=== PATIENT | male | born 1955 | race Hispanic/Latino ===

== ENCOUNTER 2024-08-24 08:23 | Inpatient (IN) | payer MEDICARE ==
[~2024-08-24] VITALS: Ht 175.3 cm; Wt 93.0 kg
[~2024-08-24 08:23] MED LIST: BENICAR20 MG PO; CRESTOR40 MG PO; FLOMAX0.4 MG PO
[2024-08-24 09:16] LABS: BASOPHILS # (AUTO) 0.1 (0.0-0.1); EOSINOPHILS # (AUTO) 0.1 (0.0-0.4); EOSINOPHILS % 0.9 % (0.0-6.0); HEMATOCRIT 40.4 % (38.2-49.6); HEMOGLOBIN 14.2 g/dL (14.0-18.0); MEAN CORPUSCULAR HEMOGLOBIN 32.6 pg (28-32); MEAN CORPUSCULAR HGB CONC 35.1 g/dL (31-35); MEAN CORPUSCULAR VOLUME 92.7 fL (81-99); MONOCYTES # (AUTO) 0.5 (0.2-0.8); MONOCYTES % 7.1 % (4.4-11.3); NEUTROPHILS # (AUTO) 5.3 (2.1-6.9); NEUTROPHILS % 76.9 % (38.7-80.0); PLATELET COUNT 177 x10e3/uL (140-360); RED BLOOD COUNT 4.36 x10e6/uL (4.3-5.7); RED CELL DISTRIBUTION WIDTH 13.4 % (11.7-14.4); WHITE BLOOD COUNT 6.93 x10e3/uL (4.8-10.8)
[2024-08-24 09:48] LABS: ALBUMIN 4.3 g/dL (3.5-5.0); ANION GAP 21.7 mmol/L (8-16); BILIRUBIN,TOTAL 0.9 mg/dL (0.2-1.2); CALCIUM 9.3 mg/dL (8.4-10.2); CREATININE, SERUM 0.81 mg/dL (0.72-1.25); POTASSIUM 3.7 mmol/L (3.5-5.1); TOTAL PROTEIN 8.8 g/dL (6.5-8.1)
[2024-08-24] MEDS: SODIUM CHLORIDE 0.9% 1000ML 1,000 ML ONE (11:37)
[2024-08-24] MEDS: PIPERACILLIN/TAZOBACTAM 3.375 GM VIAL ONE (11:37)
[2024-08-24] MEDS: CLINDAMYCIN 600MG / 50ML 50 ML IV ONE (11:38)
[2024-08-24] MEDS: GENTAMICIN 80MG/NS 100 ML 200 ML IV ONE (11:38)
[2024-08-24] MEDS: LABETALOL HCL 20 ML ONE (11:39)
[2024-08-24] MEDS ORDERED: LIDOCAINE HCL 2% LOCAL INJ 5 ML SDV VIAL INJ ONE (11:49)
[2024-08-24] MEDS ORDERED: FENTANYL CITRATE/PF 100MCG/2 ML INJ ONE (11:49)
[2024-08-24] MEDS ORDERED: SEVOFLURANE INHAL SOLN 250 ML PEN BTL ONE (11:50)
[2024-08-24] MEDS ORDERED: ACETAMINOPHEN 1000 MG/100 ML 0 ML IV ONE (11:50)
[2024-08-24] MEDS ORDERED: ROCURONIUM BROMIDE 0 ML IV ONE (11:50)
[2024-08-24] MEDS ORDERED: PROPOFOL IV EMULSION 10 MG/ML 20 ML VIAL ONE (11:50)
[2024-08-24] MEDS ORDERED: ACETAMINOPHEN 1000 MG/100 ML IV PRN (13:45)
[2024-08-24] MEDS ORDERED: ACETAMINOPHEN/CODEINE 300MG - 30MG TAB PO PRN (13:45)
[2024-08-24] MEDS ORDERED: ONDANSETRON HCL INJ 2MG/ML 2ML 2 MG/ML VIAL IV PRN (13:45)
[2024-08-24] MEDS ORDERED: DIPHENHYDRAMINE HCL 25 MG CAP PO PRN (13:45)
[2024-08-24 14:29] VITALS: PULSE 90; RESP 18; O2SAT 96
[2024-08-24 15:13] VITALS: BP 162/73; PULSE 92; RESP 20; TEMP 98.3; O2SAT 98
[2024-08-24 16:00] VITALS: BP 154/87; PULSE 91; RESP 19; TEMP 98.9; O2SAT 98
[2024-08-24] MEDS ORDERED: OLMESARTAN 20 MG TAB PO SCH (16:30)
[2024-08-24] MEDS: CARVEDILOL 3.125 MG TAB PO SCH (17:21)
[2024-08-24] MEDS: SODIUM CHLORIDE 0.9% 1000ML 1,000 ML IV SCH (17:22)
[2024-08-24 19:31] VITALS: PULSE 80; PULSE 90; RESP 18; O2SAT 96; O2SAT 98
[2024-08-24 20:00] VITALS: BP 178/89; PULSE 82; RESP 17; TEMP 98.9; O2SAT 99
[2024-08-24] MEDS: OLMESARTAN 20 MG TAB PO SCH (20:32)
[2024-08-25] VITALS (11 sets, daily range): BP systolic 134–191; BP diastolic 82–92; PULSE 74–95; RESP 17–20; TEMP 97.2–99.5; O2SAT 95–99
[2024-08-25] MEDS: HYDRALAZINE HCL 20 MG/ML VIAL IV PRN (04:20)
[2024-08-25 05:45] LABS: BASOPHILS % 0.5 % (0.0-1.0); EOSINOPHILS # (AUTO) 0.1 (0.0-0.4); HEMATOCRIT 40.2 % (38.2-49.6); HEMOGLOBIN 13.8 g/dL (14.0-18.0); LYMPHOCYTES # (AUTO) 1.1 (1.0-3.2); LYMPHOCYTES % 19.2 % (18.0-39.1); MEAN CORPUSCULAR HEMOGLOBIN 32.5 pg (28-32); MEAN CORPUSCULAR HGB CONC 34.3 g/dL (31-35); MEAN CORPUSCULAR VOLUME 94.8 fL (81-99); MONOCYTES # (AUTO) 0.6 (0.2-0.8); MONOCYTES % 11.3 % (4.4-11.3); NEUTROPHILS # (AUTO) 3.7 (2.1-6.9); NEUTROPHILS % 66.8 % (38.7-80.0); PLATELET COUNT 182 x10e3/uL (140-360); RED BLOOD COUNT 4.24 x10e6/uL (4.3-5.7); RED CELL DISTRIBUTION WIDTH 13.5 % (11.7-14.4); WHITE BLOOD COUNT 5.58 x10e3/uL (4.8-10.8)
[2024-08-25 06:12] LABS: ANION GAP 17.1 mmol/L (8-16); CALCIUM 8.9 mg/dL (8.4-10.2); CREATININE, SERUM 0.74 mg/dL (0.72-1.25); POTASSIUM 3.1 mmol/L (3.5-5.1)
[2024-08-25] MEDS: HYDRALAZINE HCL 20 MG/ML VIAL ONE (09:06)
[2024-08-25] MEDS: OLMESARTAN 20 MG TAB PO SCH (09:07)
[2024-08-25] MEDS: NIFEDIPINE CR 30 MG TAB PO ONE (09:08)
[2024-08-25] MEDS: TAMSULOSIN HCL 0.4 MG CAP PO SCH (16:51)
[2024-08-26] VITALS (7 sets, daily range): BP systolic 103–140; BP diastolic 67–90; PULSE 71–102; RESP 17–22; TEMP 98.1–98.5; O2SAT 95–98
[2024-08-26] MEDS: NIFEDIPINE CR 30 MG TAB PO SCH (05:36)
[2024-08-26 05:39] LABS: BASOPHILS % 0.7 % (0.0-1.0); EOSINOPHILS # (AUTO) 0.2 (0.0-0.4); EOSINOPHILS % 3.5 % (0.0-6.0); HEMATOCRIT 38.7 % (38.2-49.6); HEMOGLOBIN 13.4 g/dL (14.0-18.0); LYMPHOCYTES # (AUTO) 1.6 (1.0-3.2); LYMPHOCYTES % 28.8 % (18.0-39.1); MEAN CORPUSCULAR HEMOGLOBIN 32.6 pg (28-32); MEAN CORPUSCULAR HGB CONC 34.6 g/dL (31-35); MEAN CORPUSCULAR VOLUME 94.2 fL (81-99); MONOCYTES # (AUTO) 0.7 (0.2-0.8); MONOCYTES % 13.3 % (4.4-11.3); NEUTROPHILS # (AUTO) 2.9 (2.1-6.9); NEUTROPHILS % 53.3 % (38.7-80.0); PLATELET COUNT 183 x10e3/uL (140-360); RED BLOOD COUNT 4.11 x10e6/uL (4.3-5.7); RED CELL DISTRIBUTION WIDTH 13.4 % (11.7-14.4); WHITE BLOOD COUNT 5.49 x10e3/uL (4.8-10.8)
[2024-08-26 06:05] LABS: ANION GAP 14.8 mmol/L (8-16); CALCIUM 8.8 mg/dL (8.4-10.2); CREATININE, SERUM 0.75 mg/dL (0.72-1.25)
[2024-08-26 06:12] LABS: POTASSIUM 2.8 mmol/L (3.5-5.1)
[2024-08-26] MEDS: POTASSIUM CHLORIDE 20MEQ/100ML 100 ML IV ONE (08:18)
[2024-08-26] MEDS: POTASSIUM CHLORIDE 20 MEQ TAB CR PO ONE (08:19)
[2024-08-26] MEDS ORDERED: ROCURONIUM BROMIDE 1 ML IV ONE ×2 (18:02→19:40)
[2024-08-26] MEDS ORDERED: LIDOCAINE HCL 2% LOCAL INJ 5 ML SDV VIAL INJ ONE (18:02)
[2024-08-26] MEDS ORDERED: FENTANYL CITRATE/PF 100MCG/2 ML INJ ONE ×2 (18:02→21:03)
[2024-08-26] MEDS ORDERED: PROPOFOL IV EMULSION 10 MG/ML 20 ML VIAL ONE (18:03)
[2024-08-26] MEDS ORDERED: EPHEDRINE SULFATE INJ 50 MG/ML VIAL ONE (18:35)
[2024-08-26] MEDS ORDERED: Vancomycin IV 1 GM VIAL ONE (18:50)
[2024-08-26] MEDS ORDERED: DEXAMETHASONE SOD PHOS INJ 4 MG/ML SDV ONE (18:58)
[2024-08-26] MEDS ORDERED: GENTAMICIN 80MG/NS 100 ML 200 ML IV ONE (19:01)
[2024-08-26] MEDS ORDERED: PIPERACILLIN/TAZOBACTAM 3.375 GM VIAL ONE (19:02)
[2024-08-26] MEDS ORDERED: CLINDAMYCIN 600MG / 50ML 50 ML IV ONE ×2 (19:02)
[2024-08-26] MEDS ORDERED: SODIUM CHLORIDE 0.9% 100 ML ONE (19:03)
[2024-08-26] MEDS ORDERED: ACETAMINOPHEN 1000 MG/100 ML 100 ML IV ONE (19:28)
[2024-08-26] MEDS ORDERED: SUGAMMADEX SODIUM 200 MG/2 ML VIAL IV ONE (20:57)
[2024-08-26] MEDS ORDERED: ACETAMINOPHEN/CODEINE 300MG - 30MG TAB PO PRN (21:15)
[2024-08-26] MEDS ORDERED: ONDANSETRON HCL INJ 2MG/ML 2ML 2 MG/ML VIAL IV PRN (21:15)
[2024-08-26] MEDS ORDERED: ACETAMINOPHEN 1000 MG/100 ML IV PRN (21:15)
[2024-08-26] MEDS ORDERED: PHENAZOPYRIDINE HCL 100 MG TAB PO PRN (21:15)
[2024-08-26] MEDS: SODIUM CHLORIDE 0.9% 1000ML 1,000 ML IV SCH (21:15)
[2024-08-26] MEDS ORDERED: NALOXONE HCL INJ 0.4 MG/ML AMP IV PRN (21:15)
[2024-08-26] MEDS ORDERED: MORPHINE SULFATE 1 MG/ML 30ML PCA IV PRN (21:15)
[2024-08-26] MEDS ORDERED: DIPHENHYDRAMINE HCL INJ 50 MG/ML VIAL IM PRN (21:15)
[2024-08-26 21:27] LABS: BASOPHILS % 0.4 % (0.0-1.0); EOSINOPHILS # (AUTO) 0.1 (0.0-0.4); EOSINOPHILS % 1.2 % (0.0-6.0); HEMATOCRIT 36.5 % (38.2-49.6); HEMOGLOBIN 12.4 g/dL (14.0-18.0); LYMPHOCYTES # (AUTO) 1.1 (1.0-3.2); LYMPHOCYTES % 13.7 % (18.0-39.1); MEAN CORPUSCULAR HEMOGLOBIN 32.6 pg (28-32); MEAN CORPUSCULAR VOLUME 96.1 fL (81-99); MONOCYTES # (AUTO) 0.4 (0.2-0.8); MONOCYTES % 4.4 % (4.4-11.3); NEUTROPHILS # (AUTO) 6.4 (2.1-6.9); NEUTROPHILS % 79.9 % (38.7-80.0); PLATELET COUNT 164 x10e3/uL (140-360); RED CELL DISTRIBUTION WIDTH 13.5 % (11.7-14.4); WHITE BLOOD COUNT 8.04 x10e3/uL (4.8-10.8)
[2024-08-26] MEDS: MORPHINE SULFATE 1 MG/ML 30ML PCA ONE (21:30)
[2024-08-26 21:47] LABS: ANION GAP 14.7 mmol/L (8-16); CALCIUM 8.2 mg/dL (8.4-10.2); CREATININE, SERUM 0.79 mg/dL (0.72-1.25)
[2024-08-26 22:28] LABS: POTASSIUM 3.7 mmol/L (3.5-5.1)
[2024-08-27] VITALS (8 sets, daily range): BP systolic 106–159; BP diastolic 68–86; PULSE 68–84; RESP 18–20; TEMP 97.6–98; O2SAT 97–100
[2024-08-27 05:04] LABS: BASOPHILS % 0.2 % (0.0-1.0); EOSINOPHILS # (AUTO) 0.2 (0.0-0.4); EOSINOPHILS % 2.2 % (0.0-6.0); HEMATOCRIT 34.8 % (38.2-49.6); HEMOGLOBIN 11.6 g/dL (14.0-18.0); LYMPHOCYTES # (AUTO) 0.8 (1.0-3.2); MEAN CORPUSCULAR HEMOGLOBIN 32.5 pg (28-32); MEAN CORPUSCULAR HGB CONC 33.3 g/dL (31-35); MEAN CORPUSCULAR VOLUME 97.5 fL (81-99); MONOCYTES # (AUTO) 0.8 (0.2-0.8); MONOCYTES % 7.8 % (4.4-11.3); NEUTROPHILS % 81.3 % (38.7-80.0); PLATELET COUNT 162 x10e3/uL (140-360); RED BLOOD COUNT 3.57 x10e6/uL (4.3-5.7); RED CELL DISTRIBUTION WIDTH 13.3 % (11.7-14.4); WHITE BLOOD COUNT 9.86 x10e3/uL (4.8-10.8)
[2024-08-27 05:50] LABS: ANION GAP 14.4 mmol/L (8-16); CALCIUM 7.7 mg/dL (8.4-10.2); CREATININE, SERUM 0.73 mg/dL (0.72-1.25)
[2024-08-27 05:53] LABS: POTASSIUM 3.4 mmol/L (3.5-5.1)
[2024-08-27] MEDS: SENNA-S TABLET PO SCH (09:20)
[2024-08-28] VITALS (8 sets, daily range): BP systolic 155–176; BP diastolic 76–85; PULSE 68–88; RESP 17–18; TEMP 98.1–99.1; O2SAT 96–100
[2024-08-28 06:39] LABS: BASOPHILS # (AUTO) 0.1 (0.0-0.1); BASOPHILS % 0.7 % (0.0-1.0); EOSINOPHILS # (AUTO) 0.2 (0.0-0.4); EOSINOPHILS % 2.2 % (0.0-6.0); HEMATOCRIT 32.2 % (38.2-49.6); HEMOGLOBIN 10.9 g/dL (14.0-18.0); LYMPHOCYTES # (AUTO) 1.4 (1.0-3.2); LYMPHOCYTES % 17.1 % (18.0-39.1); MEAN CORPUSCULAR HEMOGLOBIN 32.8 pg (28-32); MEAN CORPUSCULAR HGB CONC 33.9 g/dL (31-35); MONOCYTES # (AUTO) 1.1 (0.2-0.8); MONOCYTES % 13.6 % (4.4-11.3); NEUTROPHILS # (AUTO) 5.4 (2.1-6.9); NEUTROPHILS % 65.9 % (38.7-80.0); PLATELET COUNT 157 x10e3/uL (140-360); RED BLOOD COUNT 3.32 x10e6/uL (4.3-5.7); RED CELL DISTRIBUTION WIDTH 13.3 % (11.7-14.4); WHITE BLOOD COUNT 8.24 x10e3/uL (4.8-10.8)
[2024-08-28 06:51] LABS: ANION GAP 12.8 mmol/L (8-16); CALCIUM 7.9 mg/dL (8.4-10.2); CREATININE, SERUM 0.68 mg/dL (0.72-1.25)
[2024-08-28 06:52] LABS: POTASSIUM 2.8 mmol/L (3.5-5.1)
[2024-08-28] MEDS: POTASSIUM CHLORIDE 10MEQ EA PO SCH (09:03)
[2024-08-28] MEDS: KCL 40MEQ/0.9% SOD CHL 1,000 ML IV SCH (09:04)
[2024-08-28] MEDS: NIFEDIPINE CR 30 MG TAB PO SCH (09:07)
[2024-08-28 14:53] LABS: CALCIUM 8.4 mg/dL (8.4-10.2); CREATININE, SERUM 0.71 mg/dL (0.72-1.25)
== END 2024-08-28 17:25 | disposition home or self-care (01) | DRG 707 ==
LOC: OR 08:23 → PACU V 13:41 → MED/SURG 14:08
PROVIDERS: ADMIT Internal Medicine; ATTEND Internal Medicine
PROC: 0T9B70Z Drainage of Bladder with Drainage Device, Via Natural or Artificial Opening (ICD-10-PCS; 2024-08-26)
PROC: 0VT00ZZ Resection of Prostate, Open Approach (ICD-10-PCS; principal; 2024-08-26 18:21)
DX: C61 Malignant neoplasm of prostate (principal); D62 Acute posthemorrhagic anemia; I16.0 Hypertensive urgency; I10 Essential (primary) hypertension; E78.5 Hyperlipidemia, unspecified; E66.9 Obesity, unspecified; Z68.30 Body mass index [BMI] 30.0-30.9, adult; E83.51 Hypocalcemia; E87.6 Hypokalemia; Z53.09 Procedure and treatment not carried out because of other contraindication
CPT/HCPCS: 36415; 71046; 80048; 80053; 83735; 85025; 86850; 86900; 88309; 93005; 93306; 94799; 99252; J0360; J1100; J1580; J2003; J2270; J2543; J3480; J7030; J7050